=== PATIENT | female | born 1980 | race African-American/Black ===

== ENCOUNTER 2021-09-27 16:31 | Emergency (ER) | payer MEDICAID ==
[~2021-09-27] VITALS: Ht 185.4 cm; Wt 141.0 kg
[2021-09-27] MEDS ORDERED: IBUPROFEN 800MG TABLET PO ONE (16:45)
[2021-09-27 17:04] VITALS: BP 160/108
[2021-09-27] MEDS ORDERED: IBUP-2030 MT (17:51)
== END 2021-09-27 18:30 | disposition home or self-care (01) ==
LOC: ER 16:31
DX: S93.691A Other sprain of right foot, initial encounter (principal); X50.1XXA Overexertion from prolonged static or awkward postures, initial encounter; Y93.89 Activity, other specified; Y92.89 Other specified places as the place of occurrence of the external cause; Y99.0 Civilian activity done for income or pay
CPT/HCPCS: 73630; 99283

== ENCOUNTER 2022-01-19 14:05 | Emergency (ER) | payer MEDICAID ==
[~2022-01-19] VITALS: Ht 188 cm; Wt 100.0 kg
[~2022-01-19 14:05] MED LIST: IBUP-2030 MT
[2022-01-19 15:17] LABS: BASOPHILS % 0.3 % (0.0-2.0); EOSINOPHILS % 0.1 % (0.0-5.0); HEMOGLOBIN. 14.2 g/dL (12.0-16.0); LYMPHOCYTES % 8.2 % (20.0-50.0); MEAN CORPUSCULAR HEMOGLOBIN 27.3 pg (28.0-32.0); MEAN PLATELET VOLUME 8.5 fl (7.4-10.4); MONOCYTES % 2.8 % (2.0-8.0); NEUTROPHILS % 88.6 % (40.0-76.0); PLATELET 244 x1000/uL (130-400); RED BLOOD CELL COUNT 5.18 mill/uL (4.2-5.4); RED CELL DISTRIBUTION WIDTH 13.4 % (11.6-14.6)
[2022-01-19 15:27] LABS: CHLORIDE 107 mEq/L (98-107)
[2022-01-19 15:32] LABS: ETHANOL BLOOD < 10 mg/dL
[2022-01-19 15:36] LABS: HCG SCREEN NEGATIVE
[2022-01-19 15:41] LABS: CLARITY URINE CLEAR (CLEAR); COLOR URINE YELLOW (YELLOW); KETONES URINE NEGATIVE (NEGATIVE); LEUKOCYTE ESTERASE URINE NEGATIVE (NEGATIVE); NITRITE URINE NEGATIVE (NEGATIVE); OCCULT BLOOD URINE 2+ (NEGATIVE); PH URINE 8.5 (4.5-8.0); PROTEIN URINE NEGATIVE (NEGATIVE); SPECIFIC GRAVITY URINE 1.012 (1.005-1.030); UROBILINOGEN URINE 0.2 E.U./dL (0.2-1.0)
[2022-01-19 16:12] LABS: *BARBITURATES SCREEN URINE NEGATIVE (NEGATIVE); *BENZODIAZEPINES SCREEN URINE NEGATIVE (NEGATIVE); *COCAINE SCREEN URINE NEGATIVE (NEGATIVE); METHADONE URINE SCREEN NEGATIVE (NEGATIVE)
[2022-01-19 16:13] LABS: *AMPHETAMINES SCREEN URINE NEGATIVE (NEGATIVE); PHENCYCLIDINE URINE SCREEN NEGATIVE (NEGATIVE)
[2022-01-19] MEDS ORDERED: MAGNESIUM/ALUMINUM HYDROXIDE/SIMETHICONE 30ML UDC PO STA (16:14)
[2022-01-19] MEDS ORDERED: KETOROLAC 30MG/ML VIAL IV STA (16:14)
[2022-01-19] MEDS ORDERED: ONDANSETRON HCL 4MG/2ML INJ IV STA (16:14)
[2022-01-19] MEDS ORDERED: SODIUM CHLORIDE 0.9% 1,000 ML IV ONE (16:15)
[2022-01-19 16:17] LABS: OPIATES URINE SCREEN NEGATIVE (NEGATIVE)
[2022-01-19 16:38] LABS: CANNABINOID URINE SCREEN PRESUMTIVE POSITIVE (NEGATIVE)
[2022-01-19] MEDS ORDERED: ONDA4TAB5 MT (16:50)
[2022-01-19] MEDS ORDERED: OMEP40CA20 MT (16:50)
[2022-01-19] MEDS ORDERED: AMLODIPINE 5MG TABLET PO ONE (18:00)
[2022-01-19 19:13] VITALS: BP 154/90
== END 2022-01-19 19:17 | disposition home or self-care (01) ==
LOC: ER 14:12
DX: R10.13 Epigastric pain (principal); I16.0 Hypertensive urgency; F15.10 Other stimulant abuse, uncomplicated; F12.10 Cannabis abuse, uncomplicated
CPT/HCPCS: 36415; 80053; 80305; 80320; 81003; 83690; 84703; 85025; 96361; 96374; 96375; 99291; J1885; J2405; J7030; G0480